=== PATIENT | female | born 1950 | race Caucasian/White ===

== ENCOUNTER 2017-12-28 15:45 | Outpatient (CLI) | payer MEDICARE ==
[2017-12-28 16:35] LABS: Blood Urea Nitrogen 15 mg/dL (7-17)
--- NOTE | 2017-12-29 10:01 | Magnetic Resonance Report ---
MRI BRAIN WITH AND WITHOUT CONTRAST INDICATION: Hemorrhagic stroke and headache. COMPARISON: None similar. FINDINGS: Multiplanar and multisequence MRI of the brain performed before and after IV contrast demonstrates no acute infarct, hemorrhage, mass effect or midline shift. No abnormal extra axial masses or fluid collections. Overall age-appropriate ventricles and sulci with slight ex-vacuo dilatation of the right lateral ventricle secondary to old right MCA territory, predominantly posterior frontal/rosado radiata 4.2 x 3.3 cm infarct/gliosis/encephalomalacia as on axial image 18, series 7, amongst others. Linear, approximately 1.9 x 0.5 cm right ganglionic chronic infarct also seen, axial image 15. Bilateral basal ganglia calcifications. Mild periventricular and few white matter FLAIR and T2 weighted hyperintensities. Normal major intracranial vascular flow voids. No focal suspicious abnormal enhancement. Normal posterior fossa with preserved basilar cisterns and symmetric seventh and eighth nerve complexes. Left vertebral artery dominant. Normal eye globes. Slight nasal septal deviation. Slight bilateral ethmoid sinusitis anteriorly. Hypoplastic/aplastic frontal sinuses bilaterally. Sphenoid sinuses also somewhat small. Grossly clear remainder imaged paranasal sinuses and mastoid air cells. Partially empty sella. Normal remainder midline structures without evidence of Chiari malformation. CONCLUSION: No acute intracranial MRI abnormality with age-appropriate atrophy, microvascular changes and old right MCA territory infarct, amongst others, as detailed above. Please correlate. Thank you for the opportunity to participate in this patient's care.
== END 2017-12-28 15:46 | disposition home or self-care (01) ==
LOC: MRI 15:45
PROVIDERS: ATTEND Internal Medicine Geriatric Medicine
DX: I69.015 Cognitive social or emotional deficit following nontraumatic subarachnoid hemorrhage (principal); G44.021 Chronic cluster headache, intractable
CPT/HCPCS: 36415; 70553; 82565; 84520; A9577